=== PATIENT | female | born 1975 | race Caucasian/White ===

== ENCOUNTER 2017-10-09 10:07 | Emergency (ER) | payer BC ==
[2017-10-09] MEDS ORDERED: HYDROmorphone 1 MG/ML 1 ML SYRINGE IVP STA (10:39)
[2017-10-09] MEDS ORDERED: METOCLOPRAMIDE 5 MG/ML 2 ML VIAL IVP STA (10:39)
[2017-10-09] MEDS ORDERED: SODIUM CHLORIDE 0.9% 1,000 ML IV STA (10:39)
[2017-10-09] MEDS ORDERED: HYDROmorphone 0.5 MG/0.5 ML SYRINGE IVP STA (10:50)
--- NOTE | 2017-10-09 11:00 | ED ---
General Adult HPI - General Chief complaint: Abdominal Pain Stated complaint: Abd Pain Time Seen by Provider: 10/09/17 10:15 Source: patient, family, RN notes reviewed Mode of arrival: ambulatory Limitations: no limitations - History of Present Illness Initial comments: Chief complaint history of present illness a 42-year-old female here with her . Patient reports she developed acute discomfort to her left flank radiating down to the left lower quadrant. Nausea vomiting. Getting progressively worse. Patient's having difficulty urinating. No some difficulty with bowel movements. - Related Data Home Medications Medication Instructions Recorded Confirmed Lisinopril [Zestril] 20 mg PO DAILY 10/09/17 10/09/17 Metoprolol Succinate [Toprol XL] 25 mg PO DAILY 10/09/17 10/09/17 Previous Rx's Medication Instructions Recorded Hydrocodone/Acetaminophen [Mcintosh 1 each PO Q6HR PRN #10 tab 10/09/17 5-325] Ondansetron Odt [Zofran Odt] 4 mg PO Q8HR PRN #10 tab 10/09/17 Tamsulosin [Flomax] 0.4 mg PO DAILY #14 cap 10/09/17 Allergies Allergy/AdvReac Type Severity Reaction Status Date / Time No Known Allergies Allergy Verified 10/09/17 13:01 Review of Systems ROS Statement: Those systems with pertinent positive or pertinent negative responses have been documented in the HPI. Review of systems no visual acuity changes no headache no chest pain no shortness of breath. The patient has discomfort left flank to the left lower quadrant area acute onset. Nausea vomiting and unable to find position of comfort. Unable to provide urine sample at this time. She tries but won't come out. Patient says it might be a chance of being . This will be checked before x-rays are done. All systems are reviewed. Past medical problems hypertension for which takes medication. Denies any surgeries family family history brain cancer. Patient does not smoke or drink alcohol socially. Patient denies ever having had a kidney stone in the past. ROS Other: All systems not noted in ROS Statement are negative. Past Medical History Past Medical History: Hypertension History of Any Multi-Drug Resistant Organisms: None Reported Past Surgical History: No Surgical Hx Reported Smoking Status: Current every day smoker Past Alcohol Use History: Occasional Past Drug Use History: None Reported General Exam - General Exam Comments Initial Comments: General: The patient is awake and alert, moderate distress because of what appears to be left renal colic and probable kidney stone. Vital signs temperature 97.2 pulse 89 respiratory rate 18 pulse ox 99% room air blood pressure 174/100. The patient does have hypertension and she is in pain. Eye: Pupils are equal, round and reactive to light, extra-ocular movements are intact ; there is normal conjunctiva bilaterally. No signs of icterus. Ears, nose, mouth and throat: There are moist mucous membranes and no oral lesions. Neck: The neck is supple, there is no tenderness . Cardiovascular: There is a regular rate and rhythm. No murmur, rub or gallop is appreciated. Respiratory: Lungs are clear to auscultation, respirations are non-labored, breath sounds are equal. No wheezes, stridor, rales, or rhonchi. Gastrointestinal: Patient presents with pain left flank raiding down the left lower quadrant. Unable to urinate at this time. Back: Left flank pain. Musculoskeletal: No swelling or pain in the upper or lower extremities. Neurological: No complaint of any numbness tingling or neuro deficits. Skin: Skin is warm and dry and no rashes or lesions are noted. Psychiatric: Cooperative appropriate mood first circumstances. Limitations: no limitations Course Vital Signs 10/09/17 10/09/17 10:08 13:20 Temperature 97.2 F L 98.7 F Pulse Rate 89 73 Respiratory 18 16 Rate Blood Pressure 174/100 142/67 O2 Sat by Pulse 99 98 Oximetry Medical Decision Making - Medical Decision Making Medical decision making; the patient's white count 13.7 hemoglobin 13.7 hematocrit 44. Potassium 4.5 with BUN 11 creatinine 0.8 and GFR greater than 60. Glucose 134. Amylase lipase within normal limits. Beta less than 2.5. The patient's urine shows 48 reds 1 white no infection. View x-ray of the abdomen was done to rule out kidney stone. The radiologist's final impression is; no acute intra-abdominal abnormality. Cardiomegaly. Degenerative changes. As read by Dr. Sood Scheduled the patient and at bedside we would normally do a CAT scan at this time to find a stone that cannot be seen on flat plate. Possibilities of her having passed and she is feeling better or if it's just not so penectomy seen on regular radiograph. The patient states she would rather wait several days after taking medications to increase urination control nausea and pain. If at that time she still has discomfort and a CAT scan would be done. Patient has no fever. The pain is gone. The patient was placed on pain medication, antinausea medication and Flomax. Advised to follow-up with family physician and on-call urologist as needed. Or return emergency room as needed. - Lab Data Result diagrams: 10/09/17 11:03 10/09/17 11:03 Lab Results 10/09/17 10/09/17 10/09/17 Range/Units 11:00 11:00 11:03 WBC (3.8-10.6) k/uL RBC (3.80-5.40) m/uL Hgb (11.4-16.0) gm/dL Hct (34.0-46.0) % MCV (80.0-100.0) fL MCH (25.0-35.0) pg MCHC (31.0-37.0) g/dL RDW (11.5-15.5) % Plt Count (150-450) k/uL Neutrophils % % Lymphocytes % % Monocytes % % Eosinophils % % Basophils % % Neutrophils # (1.3-7.7) k/uL Lymphocytes # (1.0-4.8) k/uL Monocytes # (0-1.0) k/uL Eosinophils # (0-0.7) k/uL Basophils # (0-0.2) k/uL Hypochromasia Anisocytosis Sodium 140 (137-145) mmol/L Potassium 4.5 (3.5-5.1) mmol/L Chloride 109 H (98-107) mmol/L Carbon Dioxide 21 L (22-30) mmol/L Anion Gap 10 mmol/L BUN 11 (7-17) mg/dL Creatinine 0.80 (0.52-1.04) mg/dL Est GFR (MDRD) Af Amer >60 (>60 ml/min/1.73 sqM) Est GFR (MDRD) Non-Af >60 (>60 ml/min/1.73 sqM) Glucose 134 H (74-99) mg/dL Calcium 9.6 (8.4-10.2) mg/dL Total Bilirubin 0.7 (0.2-1.3) mg/dL AST 27 (14-36) U/L ALT 48 (9-52) U/L Alkaline Phosphatase 78 (38-126) U/L Total Protein 7.4 (6.3-8.2) g/dL Albumin 4.4 (3.5-5.0) g/dL Amylase 63 (30-110) U/L Lipase 74 (23-300) U/L HCG, Quant <2.4 mIU/mL Urine Color Yellow Urine Appearance Clear (Clear) Urine pH 7.0 (5.0-8.0) Ur Specific Hurley 1.010 (1.001-1.035) Urine Protein Trace H (Negative) Urine Glucose (UA) Negative (Negative) Urine Ketones Negative (Negative) Urine Blood Moderate H (Negative) Urine Nitrite Negative (Negative) Urine Bilirubin Negative (Negative) Urine Urobilinogen <2.0 (<2.0) mg/dL Ur Leukocyte Esterase Negative (Negative) Urine RBC 48 H (0-5) /hpf Urine WBC 1 (0-5) /hpf Ur Squamous Epith Cells <1 (0-4) /hpf Urine Mucus Occasional H (None) /hpf 11/18/17 Range/Units 11:03 WBC 13.7 H (3.8-10.6) k/uL RBC 5.14 (3.80-5.40) m/uL Hgb 13.7 (11.4-16.0) gm/dL Hct 44.6 (34.0-46.0) % MCV 86.7 (80.0-100.0) fL MCH 26.5 (25.0-35.0) pg MCHC 30.6 L (31.0-37.0) g/dL RDW 16.5 H (11.5-15.5) % Plt Count 312 (150-450) k/uL Neutrophils % 90 % Lymphocytes % 6 % Monocytes % 2 % Eosinophils % 1 % Basophils % 0 % Neutrophils # 12.4 H (1.3-7.7) k/uL Lymphocytes # 0.8 L (1.0-4.8) k/uL Monocytes # 0.2 (0-1.0) k/uL Eosinophils # 0.2 (0-0.7) k/uL Basophils # 0.0 (0-0.2) k/uL Hypochromasia Slight Anisocytosis Slight Sodium (137-145) mmol/L Potassium (3.5-5.1) mmol/L Chloride (98-107) mmol/L Carbon Dioxide (22-30) mmol/L Anion Gap mmol/L BUN (7-17) mg/dL Creatinine (0.52-1.04) mg/dL Est GFR (MDRD) Af Amer (>60 ml/min/1.73 sqM) Est GFR (MDRD) Non-Af (>60 ml/min/1.73 sqM) Glucose (74-99) mg/dL Calcium (8.4-10.2) mg/dL Total Bilirubin (0.2-1.3) mg/dL AST (14-36) U/L ALT (9-52) U/L Alkaline Phosphatase (38-126) U/L Total Protein (6.3-8.2) g/dL Albumin (3.5-5.0) g/dL Amylase (30-110) U/L Lipase (23-300) U/L HCG, Quant mIU/mL Urine Color Urine Appearance (Clear) Urine pH (5.0-8.0) Ur Specific Hurley (1.001-1.035) Urine Protein (Negative) Urine Glucose (UA) (Negative) Urine Ketones (Negative) Urine Blood (Negative) Urine Nitrite (Negative) Urine Bilirubin (Negative) Urine Urobilinogen (<2.0) mg/dL Ur Leukocyte Esterase (Negative) Urine RBC (0-5) /hpf Urine WBC (0-5) /hpf Ur Squamous Epith Cells (0-4) /hpf Urine Mucus (None) /hpf Disposition Clinical Impression: Ureterolithiasis Disposition: HOME SELF-CARE Condition: Stable Instructions: Kidney Stones (ED), Renal Colic (ED), How to Strain Your Urine ( ED) Additional Instructions: Medications including medicines for nausea, pain medicine and Flomax increased urine output. Strain your urine. If pain persists follow with family physician and/or on-call urologist. Prescriptions: Hydrocodone/Acetaminophen [Mcintosh 5-325] 1 each PO Q6HR PRN #10 tab PRN Reason: Pain Ondansetron Odt [Zofran Odt] 4 mg PO Q8HR PRN #10 tab PRN Reason: Nausea Tamsulosin [Flomax] 0.4 mg PO DAILY #14 cap Referrals: Kristine Nation III, MD [Primary Care Provider] - 1-2 days Time of Disposition: 13:44
[2017-10-09 11:12] LABS: Anisocytosis Slight; Basophils % (A) 0 %; CHCM 31.3; Eosinophils # (A) 0.2 k/uL (0-0.7); Eosinophils % (A) 1 %; HCT 44.6 % (34.0-46.0); HDW 2.51; HGB 13.7 gm/dL (11.4-16.0); Hypochromasia Slight; Luc # (Auto) 0.04; Luc % (Auto) 0; Lymphocytes # (A) 0.8 k/uL (1.0-4.8); Lymphocytes % (A) 6 %; MCH 26.5 pg (25.0-35.0); MCHC 30.6 g/dL (31.0-37.0); MCV 86.7 fL (80.0-100.0); Mean Platelet Volume 8.1; Monocytes # (A) 0.2 k/uL (0-1.0); Monocytes % (A) 2 %; Neutrophils # (A) 12.4 k/uL (1.3-7.7); Neutrophils % (A) 90 %; RBC 5.14 m/uL (3.80-5.40); RDW 16.5 % (11.5-15.5); WBC 13.7 k/uL (3.8-10.6); WBC (Perox) 14.34
[2017-10-09 11:23] LABS: ALT 48 U/L (9-52); AST 27 U/L (14-36); Alkaline Phosphatase 78 U/L (38-126); Amylase 63 U/L (30-110); Anion Gap 10 mmol/L; Blood Urea Nitrogen 11 mg/dL (7-17); Calcium 9.6 mg/dL (8.4-10.2); Carbon Dioxide 21 mmol/L (22-30); Chloride 109 mmol/L (98-107); Glucose 134 mg/dL (74-99); Non-African American GFR(MDRD) >60 (>60 ml/min/1.73 sqM); Potassium 4.5 mmol/L (3.5-5.1); Sodium 140 mmol/L (137-145); Total Bilirubin 0.7 mg/dL (0.2-1.3); Total Protein 7.4 g/dL (6.3-8.2)
[2017-10-09 11:45] LABS: Appearance,Urine Clear (Clear); Bilirubin,Urine Negative (Negative); Glucose,Urine (UA) Negative (Negative); Ketones,Urine Negative (Negative); Leukocyte Esterase,Urine Negative (Negative); Mucus,Urine Occasional /hpf; Nitrite,Urine Negative (Negative); Particle Count 3795; Protein,Urine Trace (Negative); RBC,Urine 48 /hpf (0-5); Squamous Epithelial Cell,Urine <1 /hpf (0-4); UA Billing (MACRO vs. MICRO) MICRO; Urobilinogen,Urine <2.0 mg/dL (<2.0); WBC,Urine 1 /hpf (0-5)
--- NOTE | 2017-10-09 12:55 | XR ---
EXAMINATION TYPE: XR abdomen 2V , 3 VIEWS DATE OF EXAM ORDERED: 10/09/2017 HISTORY: Suspect left ureterolithiasis. COMPARISON: None. FINDINGS: The lung bases are clear. The heart appears enlarged. Within the abdomen, the abdominal gas pattern is normal. There is no evidence of obstruction or free air. No unusual calcifications are seen. Specifically I see no abnormal calcification in the expected course of the left ureter. There are degenerative changes in the lower lumbar spine and lower dorsal spines. IMPRESSION: 1. NO ACUTE INTRA-ABDOMINAL ABNORMALITY. 2. CARDIOMEGALY. 3. DEGENERATIVE CHANGE.
[2017-10-09 13:21] VITALS: BP 142/67; PULSE 73; RESP 16; TEMP 98.7
== END 2017-10-09 13:58 | disposition home or self-care (01) ==
LOC: EC 10:07
DX: N20.1 Calculus of ureter (principal); I51.7 Cardiomegaly; I10 Essential (primary) hypertension; F17.200 Nicotine dependence, unspecified, uncomplicated; Z79.899 Other long term (current) drug therapy
CPT/HCPCS: 36415; 80053; 82150; 83690; 85025; 81001; 84702; 87086; 74020; 99284; 96374; 96375; 96361; J2765; J1170

== ENCOUNTER → 2018-04-09 | Outpatient (CLI) | payer BC, OTHER ==
[2018-04-09 11:50] LABS: ALT 47 U/L (9-52); AST 33 U/L (14-36); Alkaline Phosphatase 67 U/L (38-126); Anion Gap 12 mmol/L; Blood Urea Nitrogen 8 mg/dL (7-17); Calcium 9.7 mg/dL (8.4-10.2); Carbon Dioxide 27 mmol/L (22-30); Chloride 106 mmol/L (98-107); Glucose 86 mg/dL (74-99); Potassium 4.7 mmol/L (3.5-5.1); Sodium 145 mmol/L (137-145); Total Bilirubin 0.4 mg/dL (0.2-1.3); Total Protein 6.8 g/dL (6.3-8.2)
[2018-04-09 12:06] LABS: T4, Free (Free Thyroxine) 0.93 ng/dL (0.78-2.19)
== END | disposition home or self-care (01) ==
LOC: LABWHC1 10:36
PROVIDERS: ATTEND Physician Assistant Medical
DX: Z00.01 Encounter for general adult medical examination with abnormal findings (principal); Z13.29 Encounter for screening for other suspected endocrine disorder
CPT/HCPCS: 36415; 80053; 84439; 84443

== ENCOUNTER → 2020-03-29 | Outpatient (CLI) | payer BC | END | disposition home or self-care (01) | LOC: LABWHC1 07:20 | PROVIDERS: ATTEND Obstetrics & Gynecology | DX: Z11.59 Encounter for screening for other viral diseases (principal) | CPT/HCPCS: 87635 ==

== ENCOUNTER 2020-04-01 07:02 | Day surgery (SDC) | payer BC ==
--- NOTE | 2020-03-28 12:48 | HP ---
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 She underwent colposcopy, which showed an area inside and around the transformation zone. It was difficult to obtain an actual biopsy of secondary to the angle. 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 As a result of its location and severity, we have recommended cold knife conization. PAST MEDICAL HISTORY: Significant only for hypertension and some occasional anxiety. PAST SURGICAL HISTORY: None. OBSTETRICAL HISTORY: 2, para 2-0-0-2 with two term vaginal deliveries without complications. GYNECOLOGIC HISTORY: Unremarkable with no history of any infections to include STDs. FAMILY HISTORY: Noncontributory. SOCIAL HISTORY: The patient is single and is a smoker. She denies any other significant social concerns. CURRENT MEDICATIONS: Include losartan 100 mg daily, metoprolol daily, and Klonopin 0.5 mg twice daily. ALLERGIES: No known drug allergies. REVIEW OF SYSTEMS: Confined to history of present illness. PHYSICAL EXAMINATION: In general, this is a well-developed, well-nourished white female in no acute distress. Her heart has regular rhythm and rate without murmur. Her lungs are clear to auscultation bilaterally in all connell. Her abdomen is nondistended, has normoactive bowel sounds, soft, nontender, without any palpable masses, hepatosplenomegaly, or hernias. Her extremities are without any cyanosis, clubbing, or edema and are nontender to palpation bilaterally. Cervical examination was confined to colposcopy with findings as noted in history of present illness. ASSESSMENT AND PLAN: DHAVAL 3: We have discussed options and agreed to proceed with cold knife conization of the cervix. The risks and complications of the procedure have been thoroughly discussed including the primary risk of bleeding as well as potential scarring of the cervix. The patient has no further interest in childbearing and therefore is unconcerned with the possibility of cervical incompetence. MMODL / IJN: [id number] /
[2020-03-28 16:25] VITALS: BMI 35.5
[~2020-04-01 07:02] MED LIST: DEXAMETHASONE SOD PHOSPHATE 10 MG/ML 1 ML VIAL IV ONE; HYDROmorphone 0.5 MG/0.5 ML SYRINGE IVP PRN; LACTATED RINGERS 1,000 ML IV SCH; LIDOCAINE 1% (10MG/ML) FOR IV START INTRADERMA PRN; ONDANSETRON 4 MG/2 ML VIAL IVP ONE; Pre Op ABX Message 1 EACH MISC MISCELLANE ONE
[2020-04-01] MEDS ORDERED: LACTATED RINGERS 1,000 ML IV ONE ×2 (07:29→09:25)
[2020-04-01] MEDS ORDERED: DEXAMETHASONE SOD PHOSPHATE 10 MG/ML 1 ML VIAL IV ONE (07:33)
[2020-04-01] MEDS ORDERED: ONDANSETRON 4 MG/2 ML VIAL IVP ONE (07:34)
[2020-04-01 07:44] LABS: Basophils % (A) 0 %; Eosinophils # (A) 0.2 k/uL (0-0.7); Eosinophils % (A) 2 %; HCT 44.2 % (34.0-46.0); HGB 13.9 gm/dL (11.4-16.0); Lymphocytes # (A) 1.9 k/uL (1.0-4.8); Lymphocytes % (A) 18 %; MCH 27.9 pg (25.0-35.0); MCHC 31.4 g/dL (31.0-37.0); MCV 88.8 fL (80.0-100.0); Mean Platelet Volume 7.7; Monocytes # (A) 0.5 k/uL (0-1.0); Monocytes % (A) 4 %; Neutrophils # (A) 7.6 k/uL (1.3-7.7); Neutrophils % (A) 73 %; Platelet Count 313 k/uL (150-450); RBC 4.97 m/uL (3.80-5.40); RDW 14.6 % (11.5-15.5); WBC 10.4 k/uL (3.8-10.6)
[2020-04-01 07:58] LABS: African American GFR (CKD) >90 (>60 ml/min/1.73 sqM); Anion Gap 10 mmol/L; Blood Urea Nitrogen 12 mg/dL (7-17); Calcium 9.3 mg/dL (8.4-10.2); Carbon Dioxide 22 mmol/L (22-30); Chloride 108 mmol/L (98-107); Glucose 122 mg/dL (74-99); Non-African American GFR(CKD) >90 (>60 ml/min/1.73 sqM); Potassium 4.2 mmol/L (3.5-5.1); Sodium 140 mmol/L (137-145)
[2020-04-01] MEDS ORDERED: IODINE/POTASS IOD (LUGOLS) BOTTLE TOPICAL ONE (08:08)
[2020-04-01] MEDS ORDERED: KETOROLAC 30 MG/ML 1 ML VIAL ONE (08:20)
[2020-04-01] MEDS ORDERED: fentaNYL (PF) 50 MCG/ML 2 ML AMP ONE (08:20)
[2020-04-01] MEDS ORDERED: LIDOCAINE 1% INJ 10MG/ML (20 ML MDV) ONE (08:20)
[2020-04-01] MEDS ORDERED: MIDAZOLAM 2 MG/2 ML VIAL ONE (08:20)
[2020-04-01] MEDS ORDERED: PROPOFOL 10 MG/ML 20 ML VIAL IV ONE (08:20)
[2020-04-01] MEDS ORDERED: SUCCINYLCHOLINE CHLORIDE 100 MG/5 ML SYR IV ONE (08:20)
[2020-04-01] MEDS ORDERED: FERRIC SUBSULFATE (MONSELS) JAR TOPICAL ONE (08:45)
[2020-04-01] MEDS ORDERED: KETOROLAC 30 MG/ML 1 ML VIAL IVP PRN (09:05)
[2020-04-01] MEDS ORDERED: diphenhydrAMINE 50 MG/ML 1 ML VIAL IVP PRN (09:05)
[2020-04-01] MEDS ORDERED: METOCLOPRAMIDE 5 MG/ML 2 ML VIAL IVP PRN (09:05)
[2020-04-01] MEDS ORDERED: IBUPROFEN 600 MG TAB PO PRN (09:05)
[2020-04-01] MEDS ORDERED: ONDANSETRON 4 MG/2 ML VIAL IVP PRN (09:05)
[2020-04-01] MEDS ORDERED: Acetaminophen-Codeine 300-30mg TAB PO PRN ×2 (09:05)
[2020-04-01] MEDS ORDERED: SIMETHICONE 80 MG CHEWABLE PO PRN (09:05)
[2020-04-01 09:06] VITALS: TEMP 97.7
--- NOTE | 2020-04-01 09:12 | P.OP ---
Date of Procedure: 04/01/20 Preoperative Diagnosis: #1. High-grade endocervical dysplasia Postoperative Diagnosis: Same Procedure(s) Performed: #1. Cold knife cervical conization Anesthesia: WILLIAM Surgeon: Renny Benítez Estimated Blood Loss (ml): 5 IV fluids (ml): 500 Urine output (ml): 30 Pathology: other (Cervical cone) Condition: stable Disposition: PACU Operative Findings: Preoperatively, there was no obvious nonstaining areas of the cervix. The cone was taken to approximately 1-1/2-2 cm of depth and appeared to be intact. Description of Procedure: Patient was prepped and draped in usual fashion after general endotracheal anesthesia was administered by the anesthesiologist. A weighted speculum was placed and the bladder draining approximately 30 mL of clear bree urine. The anterior lip cervix was grasped with a single-tooth tenaculum allowing placement of cervical stay sutures placed from 2:00 to 4:00 and 10:00 to 8:00 at the cervicovaginal junction into the body of the cervix bilaterally with 0 Vicryl where there were both firmly tied down. The tenaculum was then released. The cervix was stained with Lugol strong iodine and there were no nonstaining areas seen on the ectocervix. A uterine sound was placed through the cervix and into the body of the uterus on guidance of the cone. An 11 blade scalpel was utilized to cut to a depth of approximately the length of the scalpel, 1/2-2 cm circumferentially around the margin of the cervical os, perhaps a width of 1-1/2 cm, the sound was then removed and the cone grasped from anterior to posterior with an Allis clamp along it to be amputated at its base and sent for pathological diagnoses. Cautery was then utilized to control the majority of the bleeding from the cone bed. Any further ongoing bleeding was then made hemostatic with generous application of Monsel solution. Following application of Monsel's, there was minimal ongoing bleeding. The cervical stay sutures were left in place but trimmed to approximately 1 cm. All instrumentation was removed. Estimated blood loss for the case was approximate 5 mL. There were no complications. All sponge, instrument, and needle counts were correct. The patient tolerated the procedure well and proceeded to the recovery room in stable condition.
[2020-04-01] MEDS ORDERED: LACTATED RINGERS 1,000 ML IV SCH (09:15)
[2020-04-01 09:39] VITALS: RESP 16
[2020-04-01 10:48] VITALS: BP 137/75; PULSE 61
== END 2020-04-01 10:48 | disposition home or self-care (01) ==
LOC: OR 07:02
PROVIDERS: ATTEND Obstetrics & Gynecology
DX: N87.1 Moderate cervical dysplasia (principal); I10 Essential (primary) hypertension; F17.210 Nicotine dependence, cigarettes, uncomplicated; Z79.899 Other long term (current) drug therapy
CPT/HCPCS: 81025; 80048; 85025; 57520; J2250; J1100; J2405; J2001; J3010; J1885; J0330; J2704; 88307

== ENCOUNTER → 2021-08-08 | Outpatient (CLI) | payer OTHER ==
--- NOTE | 2021-08-11 09:13 | MM ---
Reason for exam: screening (asymptomatic). Last mammogram was performed 6 years and 9 months ago. History: Family history of breast cancer in paternal aunt. Physical Findings: A clinical breast exam by your physician is recommended on an annual basis and results should be correlated with mammographic findings. MG Screening Mammo w CAD Bilateral CC and MLO view(s) were taken. Prior study comparison: November 01, 2014, bilateral MG screening mammo w CAD. There are scattered fibroglandular densities. There is no discrete abnormality. No significant changes when compared with prior studies. ASSESSMENT: Negative, BI-RAD 1 RECOMMENDATION: Routine screening mammogram of both breasts in 1 year.
== END | disposition home or self-care (01) ==
LOC: RADMAMWWP 09:29
PROVIDERS: ATTEND Family Medicine
DX: Z12.31 Encounter for screening mammogram for malignant neoplasm of breast (principal)
CPT/HCPCS: 77067

== ENCOUNTER → 2023-02-04 | Outpatient (CLI) | payer SELFPAY ==
--- NOTE | 2023-02-07 13:10 | MM ---
Reason for Exam: Screening (asymptomatic). Last mammogram was performed 1 year(s) and 6 month(s) ago. Patient History: Menarche at age 15. First Full-Term at age 20. Paternal aunt had breast cancer. Last menstrual period: 02/02/2023 Risk Values: Lexie 5 year model risk: 0.6%. NCI Lifetime model risk: 7.0%. Prior Study Comparison: 11/01/2014 Bilateral Screening Mammogram, [facility]. 08/08/2021 Bilateral Screening Mammogram, [facility]. Tissue Density: There are scattered fibroglandular densities. Findings: Analyzed By CAD. There is no suspicious group of microcalcifications or new suspicious mass in either breast. Overall Assessment: Negative, BI-RAD 1 Management: Screening Mammogram of both breasts in 1 year. 1. Patient should continue monthly self breast exams. 2. A clinical breast exam by your physician is recommended on an annual basis. 3. This exam should not preclude additional follow-up of suspicious palpable abnormalities. Electronically signed and approved by: Rosina Nolan M.D. Radiologist
== END | disposition home or self-care (01) ==
LOC: RADMAMWWP 15:47
PROVIDERS: ATTEND Family Medicine
DX: Z12.31 Encounter for screening mammogram for malignant neoplasm of breast (principal); Z80.3 Family history of malignant neoplasm of breast
CPT/HCPCS: 77063; 77067

== ENCOUNTER → 2024-06-23 | Outpatient (CLI) | payer BC ==
--- NOTE | 2024-07-19 13:42 | MM ---
Reason for Exam: Screening (asymptomatic). Last mammogram was performed 1 year(s) and 5 month(s) ago. Patient History: Menarche at age 15. First Full-Term at age 20. Paternal aunt had breast cancer. Last menstrual period: 06/14/2024 Risk Values: Lexie 5 year model risk: 0.6%. NCI Lifetime model risk: 6.8%. Prior Study Comparison: 11/01/2014 Bilateral Screening Mammogram, [facility]. 08/08/2021 Bilateral Screening Mammogram, [facility]. 02/04/2023 Bilateral MG 3D screening mammo w/cad, [facility]. Tissue Density: There are scattered areas of fibroglandular density. Findings: Analyzed By CAD. Right breast: There is no suspicious group of microcalcifications or new suspicious mass. Left breast: There is no suspicious group of microcalcifications or new suspicious mass. Overall Assessment: Negative, BI-RAD 1 Management: Screening Mammogram of both breasts in [address] [facility] will attempt to contact patient to return for supplemental views and ultrasound if indicated. Patient should continue monthly self-breast exams. A clinical breast exam by your physician is recommended on an annual basis. This exam should not preclude additional follow-up of suspicious palpable abnormalities. Note on Lexie scores and lifetime risk: 1. A Lexie score greater than 3% is considered moderate risk. If this is the case, consider specialist referral to assess eligibility for a risk reducing agent. 2. If overall lifetime risk for the development of breast cancer is 20% or higher, the patient may qualify for future screening with alternating mammogram and breast MRI. Electronically signed and approved by: Ambrose Johnston DO
== END | disposition home or self-care (01) ==
LOC: RADMAMWWP 12:34
PROVIDERS: ATTEND Family Medicine
DX: Z12.31 Encounter for screening mammogram for malignant neoplasm of breast (principal); R92.323 Mammographic fibroglandular density, bilateral breasts; Z80.3 Family history of malignant neoplasm of breast
CPT/HCPCS: 77063; 77067